=== PATIENT | female | born 1960 | race Caucasian/White ===

== ENCOUNTER 2017-03-04 00:57 | Emergency (ER) | payer SELFPAY ==
[~2017-03-04] VITALS: Ht 167.6 cm; Wt 93.3 kg
[2017-03-04] MEDS ORDERED: COZAAR100 MG PO (01:07)
[2017-03-04 01:56] LABS: BASO # 0.1 (0.02-0.10); EOS # 0.6 (0.04-0.40); HEMATOCRIT 46.1 % (37.0-47.0); HEMOGLOBIN 15.3 g/dL (12.5-16.0); LYMPH# 3.9 (1.50-4.00); MEAN CELL VOLUME 94 fl (78-100); MEAN CORPUSCULAR HEMOGLOBIN 31 pg (27-31); MEAN CORPUSCULAR HGB CONC 33 g/dL (33-37); MEAN PLATELET VOLUME 10.4 fl (7.4-10.4); MONO # 1.3 (0.20-0.80); NEU # 6.5 (1.40-6.50); PLATELET COUNT 324 K/mm3 (130-400); RED BLOOD COUNT 4.92 M/mm3 (4.10-5.30); RED CELL DISTRIBUTION WIDTH 12.8 % (11.5-14.5); WHITE BLOOD COUNT 12.5 K/mm3 (4.8-10.8)
[2017-03-04 02:04] LABS: ALBUMIN 3.8 g/dL (3.5-5.0); BUN/CREATININE RATIO 15.4 (6.0-26.0); CALCIUM 9.2 mg/dL (8.4-10.2); POTASSIUM 3.9 mmol/L (3.6-5.0); TOTAL BILIRUBIN 0.5 mg/dL (0.2-1.3); TOTAL PROTEIN 7.2 g/dL (6.3-8.2)
[2017-03-04] MEDS ORDERED: PREDNISONE20 M1 PO (02:23)
[2017-03-04] MEDS ORDERED: GUAIFEN-CODEIN118 ML PO (02:23)
[2017-03-04] MEDS ORDERED: AZITHROMYCIN 250MGPK PO (02:23)
[2017-03-04 02:39] VITALS: BP 159/92
== END 2017-03-04 02:38 | disposition home or self-care (01) ==
LOC: ED 00:57
PROVIDERS: Family Medicine
DX: J44.1 Chronic obstructive pulmonary disease with (acute) exacerbation (principal); I10 Essential (primary) hypertension; F17.200 Nicotine dependence, unspecified, uncomplicated

== ENCOUNTER 2018-07-29 16:01 | Emergency (ER) | payer SELFPAY ==
[~2018-07-29] VITALS: Ht 167.6 cm; Wt 100.9 kg
[~2018-07-29 16:01] MED LIST: AZITHROMYCIN 250MGPK PO; COZAAR100 MG PO; GUAIFEN-CODEIN118 ML PO; PREDNISONE20 M1 PO
[2018-07-29] MEDS ORDERED: MEDI-FIRST ASP325 MG PO (16:15)
[2018-07-29] MEDS ORDERED: PENICILLIN-VK500 M1 PO (16:39)
[2018-07-29] MEDS ORDERED: NORCO 325 MG-51 TA1 PO (16:39)
[2018-07-29] MEDS ORDERED: METOPROLOL SUCC50 M1 PO (16:39)
[2018-07-29 18:29] VITALS: BP 190/100
== END 2018-07-29 18:29 | disposition home or self-care (01) ==
LOC: ED 16:01
DX: K08.89 Other specified disorders of teeth and supporting structures (principal); I10 Essential (primary) hypertension